=== PATIENT | female | born 1960 | race Caucasian/White ===

== ENCOUNTER → 2017-07-03 | Outpatient (CLI) | payer OTHER ==
[~2017-07-03] VITALS: Ht 165.1 cm; Wt 97.5 kg
[2017-07-03 11:51] VITALS: BP 129/42
== END ==
LOC: SPEC 06:39
DX: S81.809A Unspecified open wound, unspecified lower leg, initial encounter (principal); I73.9 Peripheral vascular disease, unspecified; Z89.512 Acquired absence of left leg below knee